=== PATIENT | female | born 1995 | race African-American/Black ===

== ENCOUNTER 2016-10-25 21:19 | Emergency (ER) | payer SELFPAY ==
[~2016-10-25] VITALS: Ht 157.5 cm; Wt 70.3 kg
[2016-10-25 21:25] VITALS: BP 118/58
[2016-10-25] MEDS ORDERED: CYCL10TA2 PO (22:18)
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
[2016-10-25 22:25] LABS: NEG OBC UR NEG; POS OBC UR POS
== END 2016-10-25 22:58 | disposition home or self-care (01) ==
LOC: ER 21:19
DX: S29.012A Strain of muscle and tendon of back wall of thorax, initial encounter (principal); F12.10 Cannabis abuse, uncomplicated; V43.62XA Car passenger injured in collision with other type car in traffic accident, initial encounter; Y93.89 Activity, other specified; Y92.481 Parking lot as the place of occurrence of the external cause; Y99.8 Other external cause status
CPT/HCPCS: 81025; 84703; 99283